=== PATIENT | male | born 1975 | race Caucasian/White ===

== ENCOUNTER 2018-01-28 10:30 | Observation (INO) ==
[2018-01-28] MEDS ORDERED: ENOXAPARIN 100 MG/ML SYRINGE SUBCUT STA (10:58)
[2018-01-28] MEDS ORDERED: ASPIRIN 325 MG TABLET PO STA (10:58)
[2018-01-28] MEDS ORDERED: SODIUM CHLORIDE 0.9% 500 ML IV STA (10:58)
[2018-01-28] MEDS ORDERED: ONDANSETRON 4 MG/2 ML VIAL IV PRN ×2 (10:58→13:29)
[2018-01-28] MEDS ORDERED: ENOXAPARIN 120 MG/0.8 ML SYRINGE SUBCUT ONE (11:09)
[2018-01-28] MEDS: MORPHINE 4 MG/1 ML VIAL IV PRN ×2 (11:19→13:20)
[2018-01-28 11:23] LABS: Basophils # 0.1 10*3/uL (0.0-0.2); Basophils % 1.5 % (0.0-0.8); Eosinophils # 0.1 10*3/uL (0.0-0.87); Eosinophils % 1.9 % (0.00-10.9); Hematocrit 43.2 VOL% (42.0-52.0); Hemoglobin 14.8 GM/DL (14.0-18.0); Immature Granulocytes % 0.2 %; Immature Granulocytes Absolute 0.01 #; Lymphocytes # 2.6 10*3/uL (1.4-4.0); Mean Corpuscular HGB Conc 34.3 GM/DL (32-36); Mean Corpuscular Hemoglobin 28 PG (27-34); Mean Corpuscular Volume 80.9 FL (87-102); Mean Platelet Volume 10.5 FL (9.6-12.0); Monocytes # 0.4 10*3/uL (0.11-0.8); Monocytes % 6.6 % (1.7-12.7); Neutrophils # 3.2 10*3/uL (1.4-7.4); Neutrophils % 49.8 % (38.7-73.9); Platelet Count 239 T/CUMM (130-400); Red Blood Count 5.34 MC/CUMM (3.8-5.5); Red Cell Distribution Width 12.8 % (9.3-17.3); White Blood Count 6.5 T/CUMM (4-12)
[2018-01-28 11:29] LABS: PT Patient Result 10.3 SECS; Partial Thromboplastin Time 26.9 SECS (0-40)
[2018-01-28 11:36] LABS: Bilirubin,Total 0.8 MG/DL (0.2-1.0); Calcium 8.5 MG/DL (8.5-10.1); Osmolality,Calculated 280.3 MOS/KG (273-304); Potassium 4.1 MMOL/L (3.5-5.1); Total Protein 7.4 G/DL (6.4-8.3)
[2018-01-28 13:00] LABS: Apearance,Urine Clear (Clear); Glucose,Urine (UA) Negative (Negative); Ketones,Urine Negative (Negative); Nitrite,Urine Negative (Negative); Protein,Urine Negative; Urine Color Straw (Yellow); Urine Specific Gravity 1.015 (1.001-1.035)
[2018-01-28 13:01] LABS: Bilirubin,Urine Negative (Negative); Blood, Urine Negative (Negative); Urine Urobilinogen 0.2 EU/DL (0.2-1.0)
[2018-01-28 13:19] LABS: Barbiturates Screen,Urine Negative (Negative); Benzodiazepines Screen,Urine Negative (Negative); Cannabinoid Screen,Urine Negative (Negative); Opiate Screen,Urine Positive (Negative); Phencyclidine Screen,Urine Negative (Negative)
[2018-01-28] MEDS ORDERED: diphenhydrAMINE CAP 25 MG CAPSULE PO PRN (13:29)
[2018-01-28] MEDS ORDERED: ACETAMINOPHEN 325 MG TABLET PO PRN (13:29)
[2018-01-28] MEDS ORDERED: MORPHINE 4 MG/1 ML VIAL IV PRN (13:29)
[2018-01-28] MEDS ORDERED: DOCUSATE SODIUM 100 MG CAPSULE PO PRN (13:29)
[2018-01-28] MEDS: PANTOPRAZOLE 40 MG TABLET PO SCH (16:28)
[2018-01-28] MEDS: NITROGLYCERIN 2% OINT 1 INCH/GM PACK TOP SCH (18:22)
[2018-01-28 18:49] LABS: Troponin I Only < 0.015 NG/ML (0.00-0.045)
[2018-01-28 21:06] LABS: Troponin I Only < 0.015 NG/ML (0.00-0.045)
[2018-01-29] MEDS: NITROGLYCERIN 2% OINT 1 INCH/GM PACK TOP SCH ×3 (00:21→12:36)
[2018-01-29 05:03] LABS: Basophils # 0.1 10*3/uL (0.0-0.2); Basophils % 1.4 % (0.0-0.8); Eosinophils # 0.2 10*3/uL (0.0-0.87); Eosinophils % 3.4 % (0.00-10.9); Hematocrit 41.1 VOL% (42.0-52.0); Hemoglobin 13.6 GM/DL (14.0-18.0); Immature Granulocytes % 0.5 %; Immature Granulocytes Absolute 0.03 #; Lymphocytes % 36.7 % (21.2-54.2); Mean Corpuscular HGB Conc 33.1 GM/DL (32-36); Mean Corpuscular Hemoglobin 27 PG (27-34); Mean Corpuscular Volume 82.9 FL (87-102); Monocytes # 0.5 10*3/uL (0.11-0.8); Monocytes % 8.3 % (1.7-12.7); Neutrophils # 2.7 10*3/uL (1.4-7.4); Neutrophils % 49.7 % (38.7-73.9); Platelet Count 203 T/CUMM (130-400); Red Blood Count 4.96 MC/CUMM (3.8-5.5); Red Cell Distribution Width 12.9 % (9.3-17.3); White Blood Count 5.5 T/CUMM (4-12)
[2018-01-29 05:30] LABS: Calcium 8.2 MG/DL (8.5-10.1); Potassium 3.9 MMOL/L (3.5-5.1); Risk Ratio 5.37; Thyroid Stimulating Hormone 0.402 uIU/ml (0.358-3.74); VLDL CHOLESTEROL 58.4 MG/DL
[2018-01-29] MEDS ORDERED: ALLOPURINOL 100 MG TABLET PO SCH (09:00)
[2018-01-29] MEDS: PANTOPRAZOLE 40 MG TABLET PO SCH (09:46)
[2018-01-29] MEDS ORDERED: NORTRIPTYLINE 25 MG CAPSULE PO SCH (10:30)
[2018-01-29 11:59] VITALS: BP 122/69
[2018-01-29] MEDS ORDERED: PRAVASTATIN 20 MG TABLET PO SCH (21:00)
== END 2018-01-29 13:31 | disposition home or self-care (01) ==
LOC: EDUNIT# → EDBD → N.ED 10:30 → N.EDINP 10:30 → SUATTDRO 13:29 → N.EDINP 15:32 → N.TELEN 15:50
PROVIDERS: ADMIT Internal Medicine; ATTEND Internal Medicine

== ENCOUNTER 2019-04-26 19:00 | Observation (INO) ==
[2019-04-26] MEDS ORDERED: INFLUENZA VIRUS VACCINE 0.5 ML SYRINGE IM ONE (21:45)
[2019-04-27] MEDS: NITROGLYCERIN 2% OINT 1 INCH/GM PACK TOP SCH ×4 (01:48→17:41)
[2019-04-27] MEDS: ENOXAPARIN 40 MG/0.4 ML SYRINGE SUBCUT SCH ×2 (06:25→20:34)
[2019-04-27 07:22] LABS: Basophils # 0.1 10*3/uL (0.0-0.2); Basophils % 0.9 % (0.0-0.8); Eosinophils # 0.1 10*3/uL (0.0-0.87); Eosinophils % 2.1 % (0.00-10.9); Hematocrit 41.6 VOL% (42.0-52.0); Hemoglobin 13.8 GM/DL (14.0-18.0); Immature Granulocytes % 0.3 %; Immature Granulocytes Absolute 0.02 #; Lymphocytes % 30.2 % (21.2-54.2); Mean Corpuscular HGB Conc 33.2 GM/DL (32-36); Mean Corpuscular Volume 81.7 FL (87-102); Mean Platelet Volume 10.4 FL (9.6-12.0); Monocytes % 6.9 % (1.7-12.7); Neutrophils % 59.6 % (38.7-73.9); Platelet Count 218 T/CUMM (130-400); Red Blood Count 5.09 MC/CUMM (3.8-5.5); Red Cell Distribution Width 12.8 % (9.3-17.3); White Blood Count 6.5 T/CUMM (4-12)
[2019-04-27 07:45] LABS: Albumin 3.6 G/DL (3.4-5.0); Bilirubin,Total 1.2 MG/DL (0.2-1.0); Calcium 8.6 MG/DL (8.5-10.1); Osmolality,Calculated 278.5 MOS/KG (273-304); Risk Ratio 5.36; Total Protein 7.1 G/DL (6.4-8.3); VLDL CHOLESTEROL 34.4 MG/DL
[2019-04-27] MEDS: ASPIRIN EC 325 MG TABLET PO SCH (08:46)
[2019-04-27] MEDS: PANTOPRAZOLE 40 MG TABLET PO SCH (08:47)
[2019-04-27] MEDS ORDERED: diphenhydrAMINE CAP 25 MG CAPSULE PO ONE (14:20)
[2019-04-27] MEDS ORDERED: DIAZEPAM 5 MG TABLET PO ONE (14:20)
[2019-04-27] MEDS ORDERED: HEPARIN/NACL 0.9% 2 UNITS/ML 1,000 ML IV ONE (15:32)
[2019-04-27] MEDS ORDERED: LIDOCAINE 1%/EPI INJ 20 ML VIAL ONE (15:32)
[2019-04-27] MEDS ORDERED: HEPARIN/NACL 0.9% 2 UNITS/ML 500 ML IV ONE (15:55)
[2019-04-27] MEDS ORDERED: MIDAZOLAM 2 MG/2 ML VIAL ONE (16:00)
[2019-04-27] MEDS ORDERED: fentaNYL 100 MCG/2 ML VIAL ONE (16:00)
[2019-04-27] MEDS ORDERED: ROSUVASTATIN 20 MG TABLET PO SCH (21:00)
[2019-04-28] MEDS: NITROGLYCERIN 2% OINT 1 INCH/GM PACK TOP SCH ×2 (00:01→07:25)
[2019-04-28 07:41] VITALS: BP 101/63
[2019-04-28] MEDS: PANTOPRAZOLE 40 MG TABLET PO SCH (08:59)
[2019-04-28] MEDS: ASPIRIN EC 325 MG TABLET PO SCH (08:59)
== END 2019-04-28 09:48 | disposition home or self-care (01) ==
LOC: EDBD → EDUNIT# → N.EDINP 19:00 → N.ED 19:00 → N.TELES 20:10
PROVIDERS: ADMIT Internal Medicine; ATTEND Internal Medicine
PROC: CLCCHCL (ICD-10-PCS; 2019-04-27 16:45)